=== PATIENT | female | born 1945 | race Caucasian/White ===

== ENCOUNTER → 2017-03-17 | Outpatient (CLI) | payer OTHER ==
[~2017-03-17] VITALS: Ht 160 cm; Wt 68.5 kg
[~2017-03-17] MED LIST: COZAAR 50 MG TA50 M2 PO; FLEXERIL PO; HYDROCHLOROTH12.5 M1 PO; IBUPROFEN 200200 M1 PO; JANUMET XR 50-1 EAC1 PO; LEXAPRO20 MG PO; LIPITOR10 MG PO
--- NOTE | ~2017-03-17 | HPC ---
[facility] [address] [address] PAIN MANAGEMENT CONSULTATION Name: ESTEFANY GRIJALVA Room #: REG [facility].#: [id number] Admission: 03/17/17 Attend Phys: Josiah Burks MD Discharge: Date of : 45 Report #: [id number] THIS REPORT FOR: //name// CC: Chava Burks DATE OF SERVICE: 03/17/2017 REASON FOR CONSULTATION: Spinal stenosis with bilateral lower extremity leg weakness and pain. HISTORY OF PRESENT ILLNESS: I am seeing the patient today for symptoms consistent with spinal stenosis. Beginning in 06/2016, she started noticing pains in her back and bilaterally into her hips and legs. She describes her pain as "it's a sharp, electric like shooting down the back of my leg down into my rear area". Pain is made worse with turning wrong, prolonged riding in the car and weightbearing. It comes and goes with jolts, but is there constantly, at a level of 6-7/10, other descriptors including sharp, shooting and stabbing. Pain drawing shows pain throughout the buttocks down the posterior lateral aspect of the leg in a symmetrical drawing. She has had some meloxicam provided, but does not like to take it because of side effects. CURRENT MEDICATIONS: Flexeril, hydrochlorothiazide, atorvastatin, Lexapro, losartan and Janumet. ALLERGIES: ERYTHROMYCIN. PAST MEDICAL HISTORY: She has been a type 2 diabetic for nearly a decade. Her last A1c was 6.5. She is treated for hypertension and has had intermittent depression. PAST SURGICAL HISTORY: Bilateral mastectomy which was done prophylactically. She had reconstruction and then removal of implants later. SOCIAL HISTORY: She is here today with her son. 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 REVIEW OF SYSTEMS: CONSTITUTIONAL SYMPTOMS: Positive for fatigue and weakness. EARS, NOSE AND THROAT: Negative. CARDIOVASCULAR: Negative. RESPIRATORY: Positive for asthma, wheezing and shortness of breath. [facility] [address] [place] [address] PAIN MANAGEMENT CONSULTATION Name: ESTEFANY GRIJALVA Room #: REG [facility]#: [id number] Admission: 03/17/17 Attend Phys: Josiah Burks MD Discharge: Date of : 45 Report #: [id number] GASTROINTESTINAL: Positive for change in bowel movements with constipation. GENITOURINARY: Negative. MUSCULOSKELETAL: Positive for lightheadedness, dizziness, numbness and tingling sensations. PSYCHIATRIC: Positive for nervousness, depression and insomnia. ENDOCRINE: Positive for heat and cold intolerance and diabetes. PHYSICAL EXAMINATION: GENERAL: She is a pleasant 71-year-old. MUSCULOSKELETAL: She moves from sitting to standing position. She ambulates without difficulty. Her gait is not antalgic. She has pain with forward flexion and extension, exacerbating lumbosacral discomfort and pain radiating down the posterior lateral aspect of the thighs. Straight leg raising bilaterally is positive, worse on the right, reproducing L5-S1 radicular symptoms. Sensation is normal. Strength is normal throughout all the muscle groups of the lower extremities with no asymmetry. Examination of the hips is negative for any pain with internal and external rotation. No tenderness over the sacroiliac joints. LABORATORY DATA: X-rays are reviewed and is consistent with findings of spinal stenosis. There is bilateral neural foraminal narrowing of a dqghnjtd-fy-vmqyfq nature, worse on the right L4-L5, with severe spinal stenosis due to ligamentum flavum thickening and a facet arthropathy. There is also noted some stenosis at L5-S1 of a lesser degree, causing mild bilateral neural foraminal narrowing. IMPRESSION: Lumbar radiculopathy, bilateral L5-S1, related to severe spinal stenosis at L4-L5. RECOMMENDATIONS: Epidural steroid injection under fluoroscopic guidance. We are unable to perform the injection today due to insurance company preauthorization requirements. We will reschedule her back in the pain clinic for Tuesday. We should be able to get the preauthorization achieved by that time. No medications were ordered. Physical therapy will be ordered at followup of the epidural injection, and we discussed the importance of a good strengthening program and mobility. By: [id number] Josiah Burks MD /nt
[2017-03-17 13:17] VITALS: BP 142/64
== END | disposition home or self-care (01) ==
LOC: PAIN 06:38
DX: M54.16 Radiculopathy, lumbar region (principal); M48.06 Spinal stenosis, lumbar region; E11.9 Type 2 diabetes mellitus without complications; F32.9 Major depressive disorder, single episode, unspecified; G47.00 Insomnia, unspecified; J45.909 Unspecified asthma, uncomplicated; Z98.890 Other specified postprocedural states; I10 Essential (primary) hypertension; Z88.8 Allergy status to other drugs, medicaments and biological substances; Z79.899 Other long term (current) drug therapy

== ENCOUNTER → 2017-05-02 | Outpatient (CLI) | payer OTHER ==
[~2017-05-02] VITALS: Ht 160 cm; Wt 64.4 kg
[~2017-05-02] MED LIST changes: +TYLENOL EXTRA500 MG PO
--- NOTE | ~2017-05-02 | HPC ---
[facility] [place] [address] PAIN MANAGEMENT CONSULTATION Name: ESTEFANY GRIJALVA Room #: REG [facility].#: [id number] Admission: 05/02/17 Attend Phys: Josiah Burks MD Discharge: Date of : 45 Report #: [id number] THIS REPORT FOR: //name// CC: Chava Burks Followup visit for lumbar radiculopathy. The patient is here today for an epidural injection. She was evaluated in February, but was unable to get in for an injection. She has back and leg pain related severe spinal stenosis at L4-L5. We have received preauthorization to perform an epidural injection. The potential risks and benefits were reviewed with her once again and we have reevaluated her condition. She is reporting a pain score of 7/10, bilateral low back radiating down the back of both legs, it has been worse since 06/2016, it is improved by lying down and worsened by walking. She has tried medication and other conservative approaches and is anxious to proceed with a trial epidural steroid injection therapy. IMPRESSION: Lumbar radiculopathy secondary to severe spinal stenosis. PROCEDURE: Epidural injection under fluoroscopic guidance. She was taken to fluoroscopic suite, placed prone, skin prepped with ChloraPrep. Skin anesthetized over L4-L5 and a 20-gauge Tuohy epidural needle advanced first attempt in the epidural space with loss of resistance. There was no blood or CSF aspirated. 1 mL of Omnipaque injected. Good spread of dye observed in the epidural space followed by 3 mL of 0.5% lidocaine mixed with 80 mg triamcinolone. She tolerated the procedure well and was taken to recovery room for observation, pain score 5 at discharge and a followup as needed in 1 month. By: 1550 0255 Josiah Burks MD /nt
[2017-05-02 12:43] VITALS: BP 140/62
== END | disposition home or self-care (01) ==
LOC: PAIN 06:17
DX: M54.16 Radiculopathy, lumbar region (principal); M48.061 Spinal stenosis, lumbar region without neurogenic claudication

== ENCOUNTER → 2018-04-13 | Outpatient (CLI) | payer OTHER ==
[~2018-04-13] VITALS: Ht 157.5 cm; Wt 69.9 kg
[~2018-04-13] MED LIST changes: +DESYREL150 MG PO; +FOLBIC RF TABL1 EACH PO; +FUSION CAPSULE1 EACH PO; +JANUVIA100 MG PO; +LANTUS SUBQ; +VITAMIN D5000 UNIT PO; +ZYRTEC10 M5 PO
--- NOTE | ~2018-04-13 | HPC ---
[facility] [address] [address] PAIN MANAGEMENT CONSULTATION Name: ESTEFANY GRIJALVA Room #: REG [facility].#: [id number] Admission: 04/13/18 Attend Phys: Josiah Burks MD Discharge: Date of : 45 Report #: [id number] THIS REPORT FOR: //name// CC: MITRA ROBERTS Physician staff Josiah Burks CHIEF COMPLAINT: Low back pain with radiculopathy. HISTORY OF PRESENT ILLNESS: The patient is a rachel 72-year-old who has been seen previously in our clinic for the treatment of lumbar radiculopathy. She presents today nearly 1 year from her last visit and injection. She reports over 6-7 months of good pain relief. The pain today is similar. It is in her low back and radiates down into her legs and she has noted severe spinal stenosis at L4-L5. Given her excellent response and her desire to avoid surgery, I have agreed to repeat an injection. Unfortunately, we cannot do so today and requiring a preauthorization before we can go forward. She describes the pain once again as a year ago, as a sharp stabbing pain, has some electric pressure-like sensation. It radiates down the posterior aspect of her leg. It is worse with standing and weightbearing. In addition to her low back pain, she suffers from some osteoarthritis involving hands and feet. PQRS review shows that she is currently not receiving opioids and an opioid risk tool, however, was provided. She is at low risk. SOCIAL HISTORY: She denies use of tobacco or alcohol. She is under treatment for hypertension by primary physician. She is on no blood thinning medication. She is a fall risk and has been tripping frequently. She fell within the last 3 months. This may be due to her radicular symptoms. Pain intensity currently is 8/10. PHYSICAL EXAMINATION: VITAL SIGNS: 141/85, heart rate 72, respirations 20. BMI is 28.2. She moves from sitting to standing position, walks with slightly antalgic features to her gait. CHEST: She has clear chest. CARDIAC: Rhythm is regular. BACK: Spine reveals tenderness across the lumbosacral segment and increased pain with back extension, reproducing pain in both the lumbosacral region and also into the legs. In addition, she has severe pain with flexion of the lumbar spine. Tenderness across the lumbosacral segment in all positions. IMAGING DATA: X-rays reveal severe spinal canal stenosis at L4-L5. There is neural foraminal narrowing. There is also stenosis of a milder degree at L5-S1 [place] [address] PAIN MANAGEMENT CONSULTATION Name: ESTEFANY GRIJALVA Room #: REG [facility] Paulo#: [id number] Admission: 04/13/18 Attend Phys: Josiah Burks MD Discharge: Date of : 45 Report #: [id number] with pars defects. Facet arthropathy is noted at L5-S1. There is no malalignment. IMPRESSION: 1. Chronic low back pain with radiculopathy. She had an outstanding response to initial epidural injection. I would recommend we repeat an injection and we will have her return to the pain clinic for that procedure within the next week or two. Procedure explained, risks and benefits. She remembers procedure from a year ago and is anxious to repeat. Followup visit planned hopefully by Tuesday if we can get preauthorization. By: 1554 [id number] Josiah Burks MD /nt
[2018-04-13 09:26] VITALS: BP 141/85
== END ==
LOC: PAIN 06:52
DX: M54.16 Radiculopathy, lumbar region (principal)

== ENCOUNTER → 2018-04-24 | Outpatient (CLI) | payer OTHER ==
[~2018-04-24] VITALS: Ht 157.5 cm; Wt 69.9 kg
--- NOTE | ~2018-04-24 | P ---
[facility] [place] [address] [place] [address] PROCEDURE REPORT Name: ESTEFANY GRIJALVA Room #: REG [facility].#: [id number] Admission: 04/24/18 Attend Phys: Josiah Burks MD Discharge: Date of : 45 Report #: [id number] THIS REPORT FOR: //name// CC: MITRA ROBERTS Physician staff Josiah Burks DATE OF SERVICE: 04/24/2018 PROCEDURE NOTE: Lumbar epidural steroid injection under fluoroscopic guidance, L4-L5. INDICATIONS FOR PROCEDURE: The patient has spinal stenosis at L4-L5 with bilateral lumbar radiculopathy. She was seen in consultation on 04/13, but we were unable to provide an epidural steroid injection due to preauthorization requirements and she has now been approved for injection. PROCEDURE NOTE: After both written and informed consent to include risk of spinal cord damage, increased pain, weakness and dural puncture, the patient was taken to the fluoroscopy suite, placed in the prone position. After sterile prep and drape, a skin wheal with lidocaine was raised. A 22-gauge epidural Tuohy needle was inserted in the midline at L4-L5 with good loss to resistance. Negative aspiration for cerebrospinal fluid or blood was noted. Then 1 mL of Omnipaque under biplanar fluoroscopy showed good spread within the epidural space. I used 3 mL of 0.5% lidocaine mixed with 80 mg of triamcinolone. Follow up as needed. By: 1459 0242 MD cielo Sibley
[2018-04-24 14:32] VITALS: BP 106/46
== END | disposition home or self-care (01) ==
LOC: PAIN 07:01
DX: M54.16 Radiculopathy, lumbar region (principal); M48.061 Spinal stenosis, lumbar region without neurogenic claudication; G89.29 Other chronic pain; Z88.8 Allergy status to other drugs, medicaments and biological substances; Z79.899 Other long term (current) drug therapy

== ENCOUNTER → 2018-06-01 | Outpatient (CLI) | payer OTHER ==
[~2018-06-01] VITALS: Ht 157.5 cm; Wt 72.3 kg
[~2018-06-01] MED LIST changes: +NEXIUM40 MG PO
--- NOTE | ~2018-06-01 | HPC ---
[facility] [address] [place] [address] PAIN MANAGEMENT CONSULTATION Name: ESTEFANY GRIJALVA Room #: REG [facility].#: [id number] Admission: 06/01/18 Attend Phys: Josiah Burks MD Discharge: Date of : 45 Report #: [id number] THIS REPORT FOR: //name// CC: MITRA GUAJARDO Physician staff Josiah Burks DATE OF SERVICE: 06/01/2018 Followup visit for low back pain with radiculopathy. The patient returns to pain clinic today after an epidural injection performed in our clinic on 04/24/2018. She had 2 weeks of outstanding pain relief. Pain was nearly gone. Pain has then returned, is not quite to baseline. We considered another injection today. She has not had physical therapy; however, I have suggested this as a likely next step. MEDICATIONS: Reviewed and reconciled. ALLERGIES: ERYTHROMYCIN AND AMOXICILLIN. PQRS shows that she has evidence of spinal spondylosis, osteoarthritic changes of the facet joints as well as lumbar spondylosis. BMI is 29, blood pressure 112/43, heart rate 74, respirations 16, O2 sat 97%. Pain intensity 8/10 today. She has some dizziness with walking and standing. She has been tripping frequently, but has not fallen. I would consider her a fall risk and she needs to be cautious. She has some weakness noted in her hip and leg extension. Some weakness also noted going up and down steps in the quadriceps muscle groups. She is on no blood thinners. She does have a history in the past of hypertension and is currently normotensive on antihypertensives. She is on no opioid therapy. SOCIAL HISTORY: She denies use of tobacco or alcohol. PHYSICAL EXAMINATION: Her ambulation today shows some mild weakness. She has limited range of motion of the lumbar spine without discomfort. A positive straight leg raising reproduces pain in the L4-L5 and L5-S1 distribution. She has spinal stenosis in that region. She has tenderness of the right knee and weakness in the quadriceps muscle group. IMPRESSION: 1. Likely osteoarthritis of the right knee. 2. Lumbar spinal stenosis at L4-L5 and L5-S1 with radiculopathy. RECOMMENDATIONS: 1. I will refer to physical therapy at [facility] for [address] [address] PAIN MANAGEMENT CONSULTATION Name: ESTEFANY GRIJALVA Room #: REG [facility].#: [id number] Admission: 06/01/18 Attend Phys: Josiah Burks MD Discharge: Date of : 45 Report #: [id number] per week for 4 weeks. 2. Lumbar epidural steroid injection can be repeated in the next month or so. If symptomatic relief is needed, hopefully we will see a longer duration of response. I would continue to inject her at L4-L5. 3. Follow up with primary care physician. She was sent to us by Dr. Mitra Guajardo. I would suggest that she continue to follow with Dr. Guajardo. She reported that she also has a district administrative assistant physician, but I really did not understand quite how she utilized her district administrative assistant physician and Dr. Guajardo. I would like her to discuss this further with Dr. Guajardo. 4. Followup visit for epidural steroid injection during the course of her physical therapy to help promote mobility. By: 1708 2215 Josiah Burks MD /nt
[2018-06-01 13:51] VITALS: BP 112/43
== END ==
LOC: PAIN 09:17
DX: M54.16 Radiculopathy, lumbar region (principal); M48.07 Spinal stenosis, lumbosacral region; I10 Essential (primary) hypertension; Z88.1 Allergy status to other antibiotic agents; Z79.899 Other long term (current) drug therapy

== ENCOUNTER → 2018-06-08 | Outpatient (CLI) | payer OTHER ==
[~2018-06-08] VITALS: Ht 157.5 cm; Wt 73.5 kg
--- NOTE | ~2018-06-08 | HPC ---
[address] [address] PAIN MANAGEMENT CONSULTATION Name: ESTEFANY GRIJALVA Room #: REG [facility].#: [id number] Admission: 06/08/18 Attend Phys: Josiah Burks MD Discharge: Date of : 45 Report #: [id number] THIS REPORT FOR: //name// CC: MITRA ROBERTS Physician staff Josiah Burks DATE OF SERVICE: 06/08/2018 CHIEF COMPLAINT: Low back pain with radiculopathy. The patient returns to pain clinic today for epidural steroid injection. She was last seen on 06/01/2018. We have received preauthorization today to proceed with the epidural injection. Her son is with her today. We had a long talk today about her elevation of blood sugar following the epidural injection performed earlier. We will reduce the triamcinolone dose in today's injection. I reviewed the MRI with the patient and her son. She has tight spinal stenosis at L4-L5 and may be a candidate for the mild procedure or perhaps a Vertiflex. I discussed these procedures with them and I would refer her to Dr. Long Puente if they decide to pursue a nonsurgical minimally invasive approach. PHYSICAL EXAMINATION: There have been no significant changes since her visit of 06/01/2018. IMPRESSION: 1. Spinal stenosis, L4-L5 with lumbar radiculopathy, bilateral. 2. Osteoarthritis, right knee. PROCEDURE: Epidural steroid injection under fluoroscopic guidance. She was taken to fluoroscopic suite, placed prone, skin prepped with ChloraPrep. Skin anesthetized over the L4-L5 interspace. A 20-gauge Tuohy epidural needle advanced into the epidural space with loss of resistance technique. There was no blood or CSF aspirated. 1 mL of Omnipaque was injected. Good spread of dye observed into the epidural space followed by 3 mL of 0.5% lidocaine mixed with 80 mg of triamcinolone. Tolerated the procedure well and was observed for 45 minutes and discharged. Pain score reduced by 50%. Follow up for further injections may be performed sometime in 2019 depending on her response to this group of 2 injections. By: [id number] Josiah Burks MD /nt
[2018-06-08 09:47] VITALS: BP 143/46
== END | disposition home or self-care (01) ==
LOC: PAIN 08:41
DX: M54.16 Radiculopathy, lumbar region (principal); M48.061 Spinal stenosis, lumbar region without neurogenic claudication; M17.11 Unilateral primary osteoarthritis, right knee; Z88.8 Allergy status to other drugs, medicaments and biological substances; Z79.899 Other long term (current) drug therapy; Z79.4 Long term (current) use of insulin; Z88.1 Allergy status to other antibiotic agents

== ENCOUNTER → 2019-04-16 | Outpatient (CLI) | payer OTHER ==
[~2019-04-16] VITALS: Ht 157.5 cm; Wt 67.6 kg
[~2019-04-16] MED LIST changes: +CBD OIL; +HYDROCODON-ACE1 EAC7 PO; +LIPITOR 20 MG T20 M1 PO
--- NOTE | ~2019-04-16 | HPC ---
[facility] [address] [place] [address] PAIN MANAGEMENT CONSULTATION Name: ESTEFANY GRIJALVA Room #: REG [facility].#: [id number] Admission: 04/16/19 Attend Phys: Josiah Burks MD Discharge: Date of : 45 Report #: [id number] THIS REPORT FOR: //name// CC: MITRA HERNANDEZ M.D. Physician staff Josiah Burks DATE OF SERVICE: 04/16/2019 Followup visit for low back pain, lumbar spondylosis. The patient returns to pain clinic today in followup. I last saw her in 05/2018. She received an epidural injection with modest improvement, but unfortunately was very sensitive to the steroid and sustained a blood sugar that was nearly 600 and it took several days for it to improve. We would like to avoid the use of further epidural steroid injections in the treatment of her back pain. She follows with Dr. Martinez at [facility], her car stower. Today, she presented with pain mostly across her low back and she has an isolated pain in her left heel. This is perhaps around the insertion of her Achilles tendon, but is locally tender. It does not present as typical diabetic neuropathy. She has nonetheless been treated with medication for neuropathy, which was poorly tolerated. She is no longer taking gabapentin or Lyrica, but is using ibuprofen 200 mg 3 tablets 3 times a day for a total of 1800 mg. It is concerning that she complains also of dyspepsia and has a history of gastric ulcer. She is on Nexium but is complaining of dark stools. This could be related to her iron, which is being provided orally for anemia, but my concern was high enough that I placed a call to Dr. Guajardo and we agreed that we would take her off of the nonsteroidal anti-inflammatory drug. I have placed her on Tylenol plain, and I have given her prescription for 20 hydrocodone 5/325. I considered tramadol, but she is on an antidepressant, Lexapro and there is some concern about serotonin syndrome using both in combination for pain. Her pain intensity is 7/10. She has not fallen in the last 3 months, but would be considered a fall risk. She has been tripping frequently, perhaps due to her neuropathy. She takes no blood thinners, but is treated for hypertension. She is not taking opioids, but we had her complete an opioid risk tool and she scored as a low risk with a score of 2. She denies use of tobacco and alcohol. PHYSICAL EXAMINATION: GENERAL: She is pleasant female. VITAL SIGNS: Blood pressure is 124/60, heart rate 70, respirations 16. She is 5 feet 2 inches, 149 pounds with a BMI of 27.2. [place] [address] PAIN MANAGEMENT CONSULTATION Name: ESTEFANY GRIJALVA Room #: REG [facility] Paulo#: [id number] Admission: 04/16/19 Attend Phys: Josiah Burks MD Discharge: Date of : 45 Report #: [id number] sitting to standing position, ambulates with a stable gait. She is generally weak. CHEST: Clear. CARDIAC: Rhythm is regular. ABDOMEN: Soft and nontender. MUSCULOSKELETAL: Examination of the spine reveals tenderness across the lumbosacral segment. She has pain with back extension and flexion. She does not present with leg pain today and there is some mild radiating pain into the buttocks bilaterally, but does not extend as one consider for radiculopathy. IMPRESSION: Lumbar spondylosis. I would recommend a trial of medial branch nerve blocks without steroid for diagnostic purposes. If she responds favorably, we could potentially provide her with good pain relief using radiofrequency ablation of the medial branch nerves. I explained the procedure with some detail to her today. We will seek preauthorization for diagnostic injections of the L3-L4 medial branch nerve and the L5 dorsal ramus bilateral. This would denervate the L4-L5 and L5-S1 facet joints. Followup visit is planned for diagnostic blocks after preauthorization. By: [id number] 0535 Josiah Burks MD /basilia
[2019-04-16 13:27] VITALS: BP 124/60
--- NOTE | 2019-04-16 14:02 | NUR ---
Pain Clinic Assessment: 1. History of Osteoarthritis: BACK History of Rheumatoid Arthritis: NO 2. Height: 5 ft. 2 in. 157.5 cm. Weight: 149.0 lb. oz. 67.586 kg. Patient's BMI: 27.2 3. Vital Signs: BP: 124/60 Pulse: 70 Resp: 16 Temp: 02 Sat: 100 ECG Mon: 4. Pain Intensity: 7 5. Fall Risk: Dizziness: N Needs help standing or walking: N Fallen in the last 3 months: N Fall risk comments: STATES TRIPPING FREQUENTLY, BRUISES-NO BROKEN BONES 6. Patient on Blood Thinner: None 7. History of Hypertension: Y 8. Opioid Therapy greater than 6 weeks: N Opiate Contract Signed: 9. Risk Assessment Tool Provided: 2-LOW RISK 10. Functional Assessment Tool: 11. Recreational Drug Use: Never Drug Type: Tobacco Use: Never Smoker Tobacco Type: Amount or Packs/day: How Many Years: Alcohol Use: No Frequency: Quant:
== END ==
LOC: PAIN 04-14 13:25
DX: M47.816 Spondylosis without myelopathy or radiculopathy, lumbar region (principal)

== ENCOUNTER → 2019-04-30 | Outpatient (CLI) | payer OTHER ==
[~2019-04-30] VITALS: Ht 157.5 cm; Wt 74.6 kg
--- NOTE | ~2019-04-30 | HPC ---
[facility] [place] [address] PAIN MANAGEMENT CONSULTATION Name: ESTEFANY GRIJALVA Room #: [facility] [id number] Admission: 04/30/19 Attend Phys: Josiah Burks MD Discharge: Date of : 45 Report #: [id number] THIS REPORT FOR: //name// CC: MITRA Guajardo Physician staff Josiah Burks DATE OF SERVICE: 04/30/2019 REASON FOR VISIT: Followup visit for medial branch nerve blocks. The patient returns to pain clinic today with her son. I described for her once again the process of medial branch nerve blocks. We are hopeful that if this is successful, that we can then proceed with radiofrequency ablation. I have discussed the procedure in some detail including the short duration of response of the local anesthetic. She was last seen on 04/16/2019. There have been no significant changes in her presentation, either history or physical exam. IMPRESSION: Lumbar spondylosis. PROCEDURE: Bilateral medial branch nerve blocks, L3, L4 and L5 dorsal ramus. PROCEDURE: After informed consent, she was taken to fluoroscopic suite. She was placed in a prone position. Skin was prepped with ChloraPrep. Skin was anesthetized overlying the L3 and L4 medial branch nerves where they rest on the transverse process of L4 and L5 at the junction of the superior articular process. The 22-gauge needles were advanced carefully into position. After negative aspiration at each level, I injected 0.5 mL of 0.5% bupivacaine without steroid. [place] were removed. I then repositioned the patient and the C-arm and a needle was positioned at the sacral ala for the L5 dorsal ramus. After negative aspiration, I injected also at this level, 1 mL of 0.5% bupivacaine. The patient was once again allowed to reposition. C-arm was moved to the right and we performed injections there, again of the L3 and L4 medial branch nerves and L5 dorsal ramus in similar fashion. There were no complications. She tolerated the procedure well and was taken to recovery room for observation. After a short period of recovery, she was moved from sitting to standing position and given typical pain generating activities. She normally reports that pain with these activities can be as high as a 7/10. Pain score was 2. I would consider this a successful response and would recommend that she return to the Pain Clinic for subsequent medial branch nerve blocks for a second [address] [address] PAIN MANAGEMENT CONSULTATION Name: ESTEFANY GRIJALVA NUNEZ Room #: REG SONA Bates#: [id number] Admission: 04/30/19 Attend Phys: Josiah Burks MD Discharge: Date of : 45 Report #: [id number] diagnostic test. If she sees a favorable response once again, I would proceed with radiofrequency ablation. By: 18 0703 Josiah Burks MD /nt
[2019-04-30 13:06] VITALS: BP 149/56
--- NOTE | 2019-04-30 13:24 | NUR ---
Pain Clinic Assessment: 1. History of Osteoarthritis: BACK History of Rheumatoid Arthritis: NO 2. Height: 5 ft. 2 in. 157.5 cm. Weight: 164.4 lb. oz. 74.571 kg. Patient's BMI: 30.1 3. Vital Signs: BP: 149/56 Pulse: 62 Resp: 16 Temp: 02 Sat: 98 ECG Mon: 4. Pain Intensity: 6 5. Fall Risk: Dizziness: N Needs help standing or walking: N Fallen in the last 3 months: N Fall risk comments: STATES TRIPPING FREQUENTLY, BRUISES-NO BROKEN BONES 6. Patient on Blood Thinner: None 7. History of Hypertension: Y 8. Opioid Therapy greater than 6 weeks: N Opiate Contract Signed: 9. Risk Assessment Tool Provided: 2-LOW RISK 10. Functional Assessment Tool: 53/ 11. Recreational Drug Use: Never Drug Type: Tobacco Use: Never Smoker Tobacco Type: Amount or Packs/day: How Many Years: Alcohol Use: No Frequency: Quant:
== END ==
LOC: PAIN 06:58
DX: M47.816 Spondylosis without myelopathy or radiculopathy, lumbar region (principal); G89.29 Other chronic pain; Z79.899 Other long term (current) drug therapy; Z88.8 Allergy status to other drugs, medicaments and biological substances

== ENCOUNTER → 2019-05-24 | Outpatient (CLI) | payer OTHER ==
[~2019-05-24] VITALS: Ht 157.5 cm; Wt 72.9 kg
--- NOTE | ~2019-05-24 | HPC ---
[facility] [place] [address] PAIN MANAGEMENT CONSULTATION Name: ESTEFANY GRIJALVA Room #: REG [facility].#: [id number] Admission: 05/24/19 Attend Phys: Josiah Burks MD Discharge: Date of : 45 Report #: [id number] THIS REPORT FOR: //name// CC: MITRA ROBERTS Physician staff Josiah Burks DATE OF SERVICE: 05/24/2019 CHIEF COMPLAINT: Lumbar spondylosis, chronic low back pain without radiation. HISTORY OF PRESENT ILLNESS: The patient returns today with her son for her second diagnostic medial branch nerve block, bilateral L3-4 and 5. She had a good response to her first injection, but as often occurs the concept of diagnostic versus therapeutic injections need to be re-forced today. We wanted to go home today after her injections and for the next 3-4 hours test the numbing medicine to see if she can do some of her activities that are limited by her back pain. She initiates the procedure today with a pain score 6/10. The patient was last seen less than 1 month ago for her first injection. There have been no changes in her health history since then. PHYSICAL EXAMINATION: Blood pressure 153/53, heart rate 74. BMI 29.4. She has pain across her low back, pain with forward flexion, extension and rotation. IMPRESSION: Lumbar spondylosis. PROCEDURE: Bilateral medial branch nerve blocks, L3-4 and L5 dorsal ramus under fluoroscopic guidance. PROCEDURE IN DETAIL: She was taken to fluoroscopic suite, placed prone, skin prepped with ChloraPrep. Skin anesthetized over the L3-L4 medial branch nerves where they rest on the transverse process of L4-5 at the junction of the superior articular process. A 25-gauge needle was advanced carefully into position. At each level, negative aspiration was achieved and I injected 0.5 mL of 0.5% bupivacaine without steroid. [place] were removed. The patient was repositioned and the C-arm was positioned so the needle could be positioned at the sacral ala for the L5 dorsal ramus. After negative aspiration, I injected this needle also with 0.5 mL of 0.5% lidocaine. The C-arm was then moved to the right and the procedure was performed in a mirror image. I began first at the L3-L4 medial branch nerves and the L5 dorsal ramus, followed in similar fashion. Each nerve injected on this occasion was 0.5 mL of 0.5% bupivacaine. There were no complications. [address] [address] PAIN MANAGEMENT CONSULTATION Name: ESTEFANY GRIJALVA Room #: REG SONA Bates#: [id number] Admission: 05/24/19 Attend Phys: Josiah Burks MD Discharge: Date of : 45 Report #: [id number] She tolerated the procedure well. She was taken to recovery room for 30 minutes and observed. Her pain score at discharge from recovery room was 0. She was given a diary to bring back for her radiofrequency ablation. Her anatomical targets appear to be favorable for the procedure and if her response continues to be so remarkably positive, she should do well. We plan to see her back before the end of the year. By: [id number] [id number] Josiah Burks MD /nt
[2019-05-24 09:15] VITALS: BP 153/53
--- NOTE | 2019-05-24 09:35 | NUR ---
Pain Clinic Assessment: 1. History of Osteoarthritis: BACK History of Rheumatoid Arthritis: Not Applicable 2. Height: 5 ft. 2 in. 157.5 cm. Weight: 160.8 lb. oz. 72.938 kg. Patient's BMI: 29.4 3. Vital Signs: BP: 153/53 Pulse: 74 Resp: 18 Temp: 02 Sat: 98 ECG Mon: 4. Pain Intensity: 6 5. Fall Risk: Dizziness: N Needs help standing or walking: N Fallen in the last 3 months: Y Fall risk comments: STATES TRIPPING FREQUENTLY, BRUISES-NO BROKEN BONES 6. Patient on Blood Thinner: None 7. History of Hypertension: Y 8. Opioid Therapy greater than 6 weeks: N Opiate Contract Signed: 9. Risk Assessment Tool Provided: 2-LOW RISK 10. Functional Assessment Tool: 11. Recreational Drug Use: Never Drug Type: Tobacco Use: Never Smoker Tobacco Type: Amount or Packs/day: How Many Years: Alcohol Use: No Frequency: Quant:
== END | disposition home or self-care (01) ==
LOC: PAIN 06:49
DX: M47.816 Spondylosis without myelopathy or radiculopathy, lumbar region (principal); M54.5 Low back pain; G89.29 Other chronic pain; Z98.890 Other specified postprocedural states; Z79.899 Other long term (current) drug therapy; Z88.8 Allergy status to other drugs, medicaments and biological substances

== ENCOUNTER → 2019-06-18 | Outpatient (CLI) | payer OTHER ==
[~2019-06-18] VITALS: Ht 157.5 cm; Wt 73.8 kg
--- NOTE | ~2019-06-18 | HPC ---
[facility] [place] [address] PAIN MANAGEMENT CONSULTATION Name: ESTEFANY GRIJALVA Room #: REG SONA Bouchra.#: [id number] Admission: 06/18/19 Attend Phys: Josiah Burks MD Discharge: Date of : 45 Report #: [id number] THIS REPORT FOR: //name// CC: MITRA ROBERTS Physician staff Josiah Burks DATE OF SERVICE: 06/18/2019 Followup visit for lumbar spondylosis. HISTORY: The patient returns to pain clinic today with two of her three sons. She has had two favorable medial branch nerve block diagnostic procedures providing short duration less than 12 hours of pain relief, but substantial. Pain relief was almost complete after her last injections of the bilateral L3-4 medial branch nerves and dorsal ramus. She is here today for the definitive procedure radiofrequency ablation. We have reviewed the procedure in some detail today. I spoke with her sons and explained the procedure including risks, and hoped for outcomes. She is anxious to proceed. Since her last visit, there have been no significant changes. She is diabetic. We will use a small amount of triamcinolone at the conclusion of the procedure, which may elevate blood sugar slightly. Pain presentation is similar to prior visits, axial back pain exacerbated by back extension. IMPRESSION: Lumbar spondylosis. PROCEDURE: Bilateral L3-L4 medial branch nerve radiofrequency ablation and bilateral L5 dorsal ramus ablation under fluoroscopic guidance. After informed consent, she was taken to fluoroscopic suite. She is placed prone. Skin was prepped and draped in the usual fashion for radiofrequency ablation. We carefully placed the radiofrequency probes on the sterile field. Skin was anesthetized first overlying the targets for the L3 and L4 medial branches corresponding to the L4 and L5 transverse process on the left. I carefully positioned each needle. I was unable to adequately identify the sacral ala. With this view, an AP projection was utilized to identify the sacral ala. Final needle for the left third was positioned with local anesthetic carefully with the tip resting overlying the sacral ala. I confirm depth of needles with AP and lateral views. We then began performance of stimulation testing and motor testing. Her responses were all appropriate and are documented on the medical record. There was no motor response at 2 Hz with [facility] [address] [place] [address] PAIN MANAGEMENT CONSULTATION Name: ESTEFANY GRIJALVA Room #: REG [facility] Shook.#: [id number] Admission: 06/18/19 Attend Phys: Josiah Burks MD Discharge: Date of : 45 Report #: [id number] the output increased to 1.5. I then injected 1 mL of 1% lidocaine through each needle and we waited 60 seconds. The radiofrequency probes were replaced back into the needle and we performed the first ablation at 80 degrees for 90 seconds. There was no discomfort. The needles were rotated 180 degrees providing for a slightly larger area of blockage. We were careful not to advance the needles. I then performed a second ablation at 80 degrees for 90 seconds. The probes were removed from the needles and prior to removing each needle, I withdrew the needle slightly and injected 5 mg of triamcinolone mixed with 1 mL of 0.5% bupivacaine through each needle. Branch were then removed. The patient was allowed to comfortably reposition. We then moved to the right. Using mirror image almost identical technique, the skin was anesthetized and the initial needle was placed at L4-L5 transverse process corresponding to the L3-L4 medial branch nerves. I then used an AP projection to position the final needle for the L5 dorsal ramus. Repositioning was done carefully to ensure good location on AP and lateral projections. We then commenced with testing. There was excellent sensory response at the top too. We repositioned on 2 occasions to try and find a better coverage for the L5 dorsal ramus ultimately obtaining sensory stimulation after several attempts. We then performed motor testing at 1.5 through each needle using the radiofrequency probe. There was no movement whatsoever noted. No twitching noted below the waist. The probes were removed. I injected 1 mL of lidocaine through each needle. We waited 60 seconds and began performance of the lesioning procedure. The patient complained of pain after 10-15 seconds. This was initially described as in her flank, but then she describes it as in the top of her thigh. After 15-20 seconds of lesioning time, I aborted the lesion. The pain abated quickly. Branch were repositioned. We began the procedure once again and there was no discomfort. I had withdrawn the needles perhaps 1-2 mm. We were able to conclude the ablation procedure comfortably and AP radiographs and lateral radiographs confirmed that the position the needles appeared adequate. Prior to removing the needles, I injected each with 1 mL of 0.5% bupivacaine and 5 mg of triamcinolone. There were no complications. She was taken to recovery room and observed for a short time and discharged with reduction in her pain from an 8 on admission to 2. She was instructed to use ice for the next day or so if necessary and that she may have some increased pain for the next 7-10 days. She was able to ambulate without difficulty and left with her sons in good condition. A followup visit planned by phone. By: [id number] [id number] Josiah Burks MD /nt
[2019-06-18 08:47] VITALS: BP 125/45
--- NOTE | 2019-06-18 09:06 | NUR ---
Pain Clinic Assessment: 1. History of Osteoarthritis: BACK HANDS History of Rheumatoid Arthritis: Not Applicable 2. Height: 5 ft. 2 in. 157.5 cm. Weight: 162.6 lb. oz. 73.755 kg. Patient's BMI: 29.7 3. Vital Signs: BP: 125/45 Pulse: 82 Resp: 14 Temp: 02 Sat: 99 ECG Mon: 4. Pain Intensity: 7-8 5. Fall Risk: Dizziness: N Needs help standing or walking: N Fallen in the last 3 months: N Fall risk comments: STATES TRIPPING FREQUENTLY, BRUISES-NO BROKEN BONES 6. Patient on Blood Thinner: None 7. History of Hypertension: Y 8. Opioid Therapy greater than 6 weeks: N Opiate Contract Signed: 9. Risk Assessment Tool Provided: 2-LOW RISK 10. Functional Assessment Tool: 53/70 11. Recreational Drug Use: Never Drug Type: Tobacco Use: Never Smoker Tobacco Type: Amount or Packs/day: How Many Years: Alcohol Use: No Frequency: Quant:
[2019-06-18 09:14] VITALS: BP 128/54
--- NOTE | 2019-06-18 11:21 | NUR ---
Pain Clinic Assessment: 1. History of Osteoarthritis: BACK HANDS History of Rheumatoid Arthritis: Not Applicable 2. Height: 5 ft. 2 in. 157.5 cm. Weight: 162.6 lb. oz. 73.755 kg. Patient's BMI: 29.7 3. Vital Signs: BP: 128/54 Pulse: 82 Resp: 14 Temp: 02 Sat: 99 ECG Mon: 4. Pain Intensity: 7-8 5. Fall Risk: Dizziness: N Needs help standing or walking: N Fallen in the last 3 months: N Fall risk comments: STATES TRIPPING FREQUENTLY, BRUISES-NO BROKEN BONES 6. Patient on Blood Thinner: None 7. History of Hypertension: Y 8. Opioid Therapy greater than 6 weeks: N Opiate Contract Signed: 9. Risk Assessment Tool Provided: 2-LOW RISK 10. Functional Assessment Tool: 53/70 11. Recreational Drug Use: Never Drug Type: Tobacco Use: Never Smoker Tobacco Type: Amount or Packs/day: How Many Years: Alcohol Use: No Frequency: Quant:
== END | disposition home or self-care (01) ==
LOC: PAIN 06:28
DX: M47.816 Spondylosis without myelopathy or radiculopathy, lumbar region (principal); G89.29 Other chronic pain; E11.9 Type 2 diabetes mellitus without complications; Z98.890 Other specified postprocedural states; Z79.899 Other long term (current) drug therapy; Z88.8 Allergy status to other drugs, medicaments and biological substances